=== PATIENT | female | born 1940 | race African-American/Black ===

== ENCOUNTER 2024-03-24 07:17 | Day surgery (SDC) | payer OTHER ==
[2024-03-21 17:38] VITALS: BMI 29.0
[2024-03-24] MEDS ORDERED: PROPOFOL 40 ML ONE (14:35)
[2024-03-24] MEDS: ceFAZolin SODIUM 1 GM VIAL IVPB ONE (15:24)
[2024-03-24] MEDS ORDERED: LIDOCAINE HCL/PF 2% SDV 5ML VIAL ONE (15:53)
[2024-03-24] MEDS ORDERED: DEXAMETHASONE SOD PHOSPHATE 4 MG/1 ML VIAL ONE (15:53)
[2024-03-24] MEDS ORDERED: ONDANSETRON 4 MG/2 ML VIAL ONE (15:53)
[2024-03-24] MEDS ORDERED: ONDANSETRON 4 MG/2 ML VIAL IVPUSH PRN (16:03)
[2024-03-24] MEDS ORDERED: ACETAMINOPHEN INJECTION 100 ML ONE (16:07)
[2024-03-24] MEDS ORDERED: LACTATED RINGERS SOLUTION 1,000 ML IV SCH (16:15)
[2024-03-24] MEDS: ACETAMINOPHEN 1000 MG/100 ML BAG IVPB ONE (16:15)
[2024-03-24 17:33] VITALS: RESP 18
[2024-03-24 18:26] VITALS: BP 160/77; PULSE 69; TEMP 97.5
== END 2024-03-24 19:10 | disposition home or self-care (01) ==
LOC: JASU-SURG 07:17
PROVIDERS: ATTEND Obstetrics & Gynecology
PROC: 0UB98ZZ Excision of Uterus, Via Natural or Artificial Opening Endoscopic (ICD-10-PCS; principal; 2024-03-24 09:00)
PROC: 0UH98HZ Insertion of Contraceptive Device into Uterus, Via Natural or Artificial Opening Endoscopic (ICD-10-PCS; 2024-03-24 09:00)
DX: N85.02 Endometrial intraepithelial neoplasia [EIN] (principal)
CPT/HCPCS: 58300; 58558; J7298; 88305-TC; 94760; J0131